=== PATIENT | female | born 1960 | race Caucasian/White ===

== ENCOUNTER 2022-03-09 07:07 | Inpatient (IN) ==
[2022-03-09] MEDS ORDERED: SODIUM CHLORIDE 0.9% 1,000 ML IV STA (07:55)
[2022-03-09 08:15] LABS: Basophils % 0.4 % (0.0-0.8); Eosinophils # 0.3 10*3/uL (0.0-0.87); Eosinophils % 2.6 % (0.00-10.9); Hematocrit 32.4 VOL% (35.7-47.0); Hemoglobin 11.1 GM/DL (12.0-16.0); Immature Granulocytes % 0.3 %; Immature Granulocytes Absolute 0.03 #; Lymphocytes # 4.4 10*3/uL (1.4-4.0); Lymphocytes % 45.7 % (21.3-54.2); Mean Corpuscular HGB Conc 34.3 GM/DL (32-36); Mean Corpuscular Volume 91.3 FL (87-102); Mean Platelet Volume 10.9 FL (9.6-12.0); Monocytes # 1.2 10*3/uL (0.11-0.8); Monocytes % 12.3 % (1.7-12.7); Neutrophils % 38.7 % (38.7-73.9); Platelet Count 214 T/CUMM (130-400); Red Blood Count 3.55 MC/CUMM (3.8-5.5); Red Cell Distribution Width 14.8 % (9.3-17.3); White Blood Count 9.6 T/CUMM (4-12)
[2022-03-09 08:26] LABS: INR 0.9; PT Patient Result 10.3 SECS (10.1-12.1); Partial Thromboplastin Time 27.8 SECS (23.7-32.9)
[2022-03-09 08:31] LABS: Bilirubin,Urine Negative (Negative); Blood, Urine Negative (Negative); Glucose,Urine (UA) Negative (Negative); Ketones,Urine Negative (Negative); Nitrite,Urine Negative (Negative); Protein,Urine Negative (Negative); RBC,Urine 1 /HPF (0-4); Urine Appearance Clear (Clear); Urine Color Yellow (Yellow); Urine Specific Gravity 1.015 (1.001-1.035); Urine Urobilinogen 0.2 eU/dL (<2.0); Urine pH 6.5 (4.5-8.0)
[2022-03-09 08:35] LABS: Arterial Base Excess iSTAT 2 MMOL/L (-2.5-2.5); Arterial Bicarbonate iSTAT 27.8 MMOL/L (20-26); Arterial O2 Saturation iSTAT 93 % (95-100); Arterial PCO2 iSTAT 47 MM HG (35-48); Arterial PO2 iSTAT 68 MM HG (80-95); Arterial Total CO2 iSTAT 29 MMO/L (23-27); Arterial pH iSTAT 7.383 (7.35-7.45)
[2022-03-09 08:36] LABS: Barbiturates Screen,Urine Negative (Negative); Benzodiazepines Screen,Urine Negative (Negative); Cannabinoid Screen,Urine Negative (Negative); Opiate Screen,Urine Negative (Negative); Phencyclidine Screen,Urine Negative (Negative)
[2022-03-09 08:50] LABS: Alanine Aminotransferase 18 U/L (13-56); Albumin 3.9 G/DL (3.4-5.0); Alkaline Phosphatase 109 U/L (45-117); Aspartate Amino Transferase 22 U/L (0-37); Blood Urea Nitrogen 59 MG/DL (7-18); Calcium 9.5 MG/DL (8.5-10.1); Carbon Dioxide 30 MMOL/L (21-32); Chloride 92 MMOL/L (98-107); Glucose 110 MG/DL (74-106); Osmolality,Calculated 277.8 MOS/KG (273-304); Potassium 5.1 MMOL/L (3.5-5.1); Sodium 130 MMOL/L (136-145); Total Protein 7.2 G/DL (6.4-8.2)
[2022-03-09] MEDS ORDERED: DOCUSATE SODIUM 100 MG CAPSULE PO PRN (09:27)
[2022-03-09] MEDS ORDERED: ONDANSETRON 4 MG/2 ML VIAL IV PRN (09:27)
[2022-03-09] MEDS ORDERED: SIMETHICONE CHEW 125 MG TABLET PO PRN (09:27)
[2022-03-09] MEDS: ENOXAPARIN 30 MG/0.3 ML SYRINGE SUBCUT SCH (12:23)
[2022-03-09] MEDS: SODIUM CHLORIDE 0.9% 1,000 ML IV SCH ×3 (12:23→22:50)
[2022-03-09] MEDS: ALBUTEROL 2.5 MG/3 ML NEB RESP TX SCH ×2 (13:10→19:36)
[2022-03-09] MEDS: OMEGA 3 ACID ETHYL ESTERS 1 GM CAPSULE PO SCH (20:05)
[2022-03-09] MEDS: ROSUVASTATIN 20 MG TABLET PO SCH (20:05)
[2022-03-09] MEDS: BUPRENORPHINE SL TAB 2 MG TABLET SL SCH (20:05)
[2022-03-09] MEDS ORDERED: BUPRENORPHINE HCL 8 MG SL SCH (21:00)
[2022-03-10] MEDS: ALBUTEROL 2.5 MG/3 ML NEB RESP TX SCH ×4 (02:32→19:44)
[2022-03-10] MEDS: SODIUM CHLORIDE 0.9% 1,000 ML IV SCH (06:28)
[2022-03-10 06:41] LABS: Alanine Aminotransferase 17 U/L (13-56); Albumin 3.3 G/DL (3.4-5.0); Alkaline Phosphatase 84 U/L (45-117); Aspartate Amino Transferase 20 U/L (0-37); Bilirubin,Total < 0.39 MG/DL (0.20-1.00); Blood Urea Nitrogen 50 MG/DL (7-18); Calcium 9.5 MG/DL (8.5-10.1); Carbon Dioxide 26 MMOL/L (21-32); Chloride 106 MMOL/L (98-107); Glucose 107 MG/DL (74-106); Potassium 5.7 MMOL/L (3.5-5.1); Sodium 136 MMOL/L (136-145); Total Protein 6.7 G/DL (6.4-8.2)
[2022-03-10 06:42] LABS: Basophils % 0.6 % (0.0-0.8); Eosinophils # 0.2 10*3/uL (0.0-0.87); Eosinophils % 2.8 % (0.00-10.9); Hemoglobin 9.9 GM/DL (12.0-16.0); Immature Granulocytes % 0.3 %; Immature Granulocytes Absolute 0.02 #; Lymphocytes # 3.5 10*3/uL (1.4-4.0); Lymphocytes % 53.4 % (21.3-54.2); Mean Corpuscular Volume 92.6 FL (87-102); Mean Platelet Volume 11.1 FL (9.6-12.0); Monocytes % 14.8 % (1.7-12.7); Neutrophils % 28.1 % (38.7-73.9); Platelet Count 210 T/CUMM (130-400); Red Blood Count 3.24 MC/CUMM (3.8-5.5); Red Cell Distribution Width 14.8 % (9.3-17.3); White Blood Count 6.5 T/CUMM (4-12)
[2022-03-10 07:14] LABS: Atypical Lymphocytes 1+; Eosinophils 2 % (0-10); Lymphocytes 57 % (20-55); Platelet Estimate Normal; Total Cells Counted 100
[2022-03-10 07:15] LABS: Anisocytosis 1+
[2022-03-10] MEDS ORDERED: INSULIN REGULAR 10 UNIT, CALCIUM GLUCONATE 1,000 MG in DEXTROSE 10% 250 ML IV ONE (08:17)
[2022-03-10] MEDS: PANTOPRAZOLE 40 MG TABLET PO SCH (08:19)
[2022-03-10] MEDS: POLYETHYLENE GLYCOL POWDER 17 GM PACK PO SCH (08:19)
[2022-03-10] MEDS: BUPRENORPHINE SL TAB 2 MG TABLET SL SCH ×2 (08:19→20:46)
[2022-03-10] MEDS: CYANOCOBALAMIN 500 MCG TABLET PO SCH (08:19)
[2022-03-10] MEDS: OMEGA 3 ACID ETHYL ESTERS 1 GM CAPSULE PO SCH ×2 (08:19→20:46)
[2022-03-10] MEDS ORDERED: DEXTROSE 50% 25 GM/50 ML VIAL IV ONE (08:25)
[2022-03-10] MEDS ORDERED: CALCIUM GLUCONATE RIDER 1,000 MG/50 ML PREMIX IV ONE (08:26)
[2022-03-10] MEDS: ENOXAPARIN 30 MG/0.3 ML SYRINGE SUBCUT SCH (10:59)
[2022-03-10] MEDS: HydrOXYzine PAMOATE 25 MG CAPSULE PO PRN ×2 (16:35→22:50)
[2022-03-10] MEDS: ROSUVASTATIN 20 MG TABLET PO SCH (20:46)
[2022-03-11] MEDS ORDERED: MELATONIN 3 MG TABLET PO PRN (01:37)
[2022-03-11] MEDS: ALBUTEROL 2.5 MG/3 ML NEB RESP TX SCH ×3 (03:02→14:00)
[2022-03-11 08:30] LABS: Basophils % 0.5 % (0.0-0.8); Eosinophils # 0.1 10*3/uL (0.0-0.87); Eosinophils % 1.2 % (0.00-10.9); Hematocrit 33.7 VOL% (35.7-47.0); Hemoglobin 10.8 GM/DL (12.0-16.0); Immature Granulocytes % 0.3 %; Immature Granulocytes Absolute 0.02 #; Lymphocytes # 2.8 10*3/uL (1.4-4.0); Lymphocytes % 37.7 % (21.3-54.2); Mean Corpuscular Volume 96.8 FL (87-102); Mean Platelet Volume 11.3 FL (9.6-12.0); Monocytes % 13.7 % (1.7-12.7); Neutrophils % 46.6 % (38.7-73.9); Platelet Count 252 T/CUMM (130-400); Red Blood Count 3.48 MC/CUMM (3.8-5.5); Red Cell Distribution Width 15.6 % (9.3-17.3); White Blood Count 7.3 T/CUMM (4-12)
[2022-03-11] MEDS: CYANOCOBALAMIN 500 MCG TABLET PO SCH (08:31)
[2022-03-11] MEDS: OMEGA 3 ACID ETHYL ESTERS 1 GM CAPSULE PO SCH (08:31)
[2022-03-11] MEDS: PANTOPRAZOLE 40 MG TABLET PO SCH (08:32)
[2022-03-11] MEDS: HydrOXYzine PAMOATE 25 MG CAPSULE PO PRN ×2 (08:32→15:27)
[2022-03-11] MEDS: BUPRENORPHINE SL TAB 2 MG TABLET SL SCH (08:32)
[2022-03-11] MEDS: POLYETHYLENE GLYCOL POWDER 17 GM PACK PO SCH (08:32)
[2022-03-11 08:38] LABS: Calcium 10.7 MG/DL (8.5-10.1); Potassium 5.5 MMOL/L (3.5-5.1)
[2022-03-11 08:49] LABS: % Iron Saturation 14.8 % (18-50)
[2022-03-11 08:58] LABS: Folate 22.12 NG/ML (5.38-24.0)
[2022-03-11] MEDS ORDERED: INSULIN REGULAR 10 UNIT, CALCIUM GLUCONATE 1,000 MG in DEXTROSE 10% 250 ML IV ONE ×2 (09:04→14:00)
[2022-03-11] MEDS: ENOXAPARIN 30 MG/0.3 ML SYRINGE SUBCUT SCH (10:31)
[2022-03-11 12:10] LABS: Osmolality,Calculated 274.4 MOS/KG (273-304); Potassium 5.6 MMOL/L (3.5-5.1)
[2022-03-11 15:28] VITALS: BP 145/81
== END 2022-03-11 16:55 | disposition home or self-care (01) | DRG 682 ==
LOC: N.ED 07:07 → N.3E 11:00 → SUATTDRO 11:07
PROVIDERS: ADMIT Internal Medicine; ATTEND Internal Medicine